=== PATIENT | female | born 2000 | race Hispanic/Latino ===

== ENCOUNTER 2021-03-18 22:54 | Observation (INO) | payer OTHER, MEDICAID ==
[~2021-03-18] VITALS: Ht 149.9 cm; Wt 61.7 kg
[2021-03-18 22:56] VITALS: BP 146/93
[2021-03-18 23:26] LABS: BILIRUBIN,URINE Small (NEGATIVE); COLOR,URINE Dark Yellow (YELLOW); GLUCOSE, URINE (UA) Negative (NEGATIVE); KETONES,URINE Trace mg/dL (NEGATIVE); LEUKOCYTE ESTERASE ,URINE Small (NEGATIVE); NITRATE,URINE Negative (NEGATIVE); OCCULT BLOOD,URINE Negative (NEGATIVE); PROTEIN,URINE POS 1+ mg/dL (NEGATIVE)
[2021-03-18 23:28] LABS: APPEARANCE,URINE HAZY (CLEAR)
[2021-03-18 23:35] LABS: BACTERIA,URINE Few /HPF (None Seen)
[2021-03-20] MEDS ORDERED: PREN1TAB80 PO (20:39)
[2021-03-20] MEDS ORDERED: DIPH25 PO (20:40)
== END 2021-03-19 01:05 | disposition home or self-care (01) ==
LOC: EDH 22:54 → LDH 22:55
PROVIDERS: ADMIT Obstetrics & Gynecology; ATTEND Obstetrics & Gynecology
DX: O62.9 Abnormality of forces of labor, unspecified (principal); O36.8130 Decreased fetal movements, third trimester, not applicable or unspecified; O26.893 Other specified pregnancy related conditions, third trimester; R10.9 Unspecified abdominal pain; K59.00 Constipation, unspecified; Z3A.37 37 weeks gestation of pregnancy; Z90.49 Acquired absence of other specified parts of digestive tract
CPT/HCPCS: 59025; 76819; 81001; G0378 ×2; G0379

== ENCOUNTER 2021-03-20 15:30 | Inpatient (IN) | payer OTHER, MEDICAID ==
[~2021-03-20] VITALS: Ht 149.9 cm; Wt 62.1 kg
[2021-03-20] MEDS ORDERED: PROMETHAZINE HCL 25 MG/ML 1ML AMPULE IM PRN (19:30)
[2021-03-20] MEDS ORDERED: MEPERIDINE-PF 50 MG/ML SYG IVP PRN (19:30)
[2021-03-20] MEDS ORDERED: LACTATED RINGERS 1000ML 1,000 ML IV PRN (19:30)
[2021-03-20 19:57] LABS: APPEARANCE,URINE Clear (CLEAR); BILIRUBIN,URINE Small (NEGATIVE); COLOR,URINE Dark Yellow (YELLOW); GLUCOSE, URINE (UA) Negative (NEGATIVE); KETONES,URINE Negative (NEGATIVE); LEUKOCYTE ESTERASE ,URINE Small (NEGATIVE); NITRATE,URINE Negative (NEGATIVE); OCCULT BLOOD,URINE Negative (NEGATIVE); PH,URINE 6.5 (5.0-8.0); PROTEIN,URINE Trace mg/dL (NEGATIVE)
[2021-03-20 20:05] LABS: BACTERIA,URINE Few /HPF (None Seen); RBC,URINE 0-1 /HPF (0-1); SQUAMOUS EPITHELIAL CELL,UR Few /HPF (0-2)
[2021-03-20] MEDS ORDERED: EPHEDRINE SULFATE 50 MG/ML AMPULE IVP PRN (20:30)
[2021-03-20] MEDS ORDERED: AMPICILLIN 2GM+NS 100ML 100 ML IV SCH (20:30)
[2021-03-20] MEDS ORDERED: LACTATED RINGERS 500 ML 500 ML IV PRN (20:30)
[2021-03-20] MEDS ORDERED: NALOXONE HCL 0.4 MG/1 ML ML IV PRN (20:30)
[2021-03-20 20:38] LABS: HEMATOCRIT 34.6 % (36-48); MEAN CORPUSCULAR HEMOGLOBIN 30.4 pg (27.0-33.0); MEAN CORPUSCULAR HGB CONC 33.2 g/dL (32.0-36.0); MEAN CORPUSCULAR VOLUME 91.5 fL (80-100); RED BLOOD CELL COUNT(AUTO) 3.78 MIL/uL (4.00-5.50); RED CELL DISTRIBUTION WIDTH 12.6 % (11.0-15.5); WHITE BLOOD COUNT (AUTO) 9.3 K/uL (4.8-10.8)
[2021-03-20] MEDS ORDERED: PREN1TAB80 PO ×2 (20:39)
[2021-03-20] MEDS ORDERED: DIPH25 PO ×2 (20:40)
[2021-03-20 20:54] LABS: AMPHET/METH SCREEN,URINE NEGATIVE (NEGATIVE); BARBITURATE SCREEN, URINE NEGATIVE (NEGATIVE); BENZODIAZEPINES SCREEN,URINE NEGATIVE (NEGATIVE); CANNABINOID SCREEN,URINE NEGATIVE (NEGATIVE); COCAINE SCREEN,URINE NEGATIVE (NEGATIVE); OPIATE SCREEN,URINE NEGATIVE (NEGATIVE); PHENCYCLIDINE SCREEN,URINE NEGATIVE (NEGATIVE)
[2021-03-20] MEDS ORDERED: MAGNESIUM 4GM PREMIX 100ML 100 ML IV ONE (23:15)
[2021-03-20] MEDS ORDERED: CALCIUM GLUC 1GM/10ML VIAL IV PRN (23:30)
[2021-03-20] MEDS ORDERED: LACTATED RINGERS 1000ML 1,000 ML IV SCH (23:30)
[2021-03-20] MEDS ORDERED: MAGNESIUM 4GM PREMIX 100ML 100 ML IV PRN (23:30)
[2021-03-20] MEDS ORDERED: MAGNESIUM SULFATE 40GM/1000ML 1,000 ML IV ONE (23:36)
[2021-03-20] MEDS ORDERED: MAGNESIUM SULFATE 40GM/1000ML 1,000 ML IV PRN (23:45)
[2021-03-20 23:47] LABS: CREATININE 0.6 mg/dL (0.5-1.5); POTASSIUM 3.3 mmol/L (3.5-5.1)
[2021-03-20 23:48] LABS: INR 0.84 (0.85-1.15); PROTHROMBIN TIME 9.3 SEC (9.6-11.6)
[2021-03-20 23:50] LABS: PARTIAL THROMBOPLASTIN TIME 25.6 SEC (26.3-35.5)
[2021-03-20 23:51] LABS: ALBUMIN 2.2 g/dL (3.5-5.0); BILIRUBIN,TOTAL 0.8 mg/dL (0.2-1.0); TOTAL PROTEIN, SERUM 6.6 g/dL (6.0-8.3); URIC ACID 4.2 mg/dL (2.6-7.2)
[2021-03-21] MEDS: AMPICILLIN 1GM+NS 50ML 50 ML IV SCH ×3 (00:19→09:01)
[2021-03-21] MEDS ORDERED: OXYTOCIN-LR 20 UNITS/1000 ML 1,000 ML IV SCH (05:00)
[2021-03-21] MEDS ORDERED: ACETAMINOPHEN 500 MG TABLET PO PRN (09:00)
[2021-03-21] MEDS ORDERED: ACETAMINOPHEN 500 MG TABLET ONE (09:04)
[2021-03-21] MEDS ORDERED: LIDOCAINE HCL 1% 20 ML VIAL ONE (13:41)
[2021-03-21] MEDS ORDERED: MISOPROSTOL 200 MCG TABLET ONE (15:12)
[2021-03-21] MEDS ORDERED: MAGNESIUM 4GM PREMIX 100ML 100 ML IV PRN (15:30)
[2021-03-21] MEDS ORDERED: CALCIUM GLUC 1GM/10ML VIAL IV PRN (15:30)
[2021-03-21] MEDS: LACTATED RINGERS 1000ML 1,000 ML IV SCH (15:30)
[2021-03-21] MEDS ORDERED: MAGNESIUM SULFATE 40GM/1000ML 1,000 ML IV PRN (15:30)
[2021-03-21] MEDS ORDERED: OXYTOCIN 10 USP UNITS/ML IV PRN (15:30)
[2021-03-21] MEDS: OXYTOCIN-LR 20 UNITS/1000 ML 1,000 ML IV SCH (16:09)
[2021-03-21] MEDS ORDERED: LANOLIN 30GM OINTMENT TP PRN (21:30)
[2021-03-21] MEDS ORDERED: BENZOCAINE/LANOLIN/ALOE VERA 60 ML AEROSOL TP PRN (21:30)
[2021-03-21] MEDS ORDERED: WITCH HAZEL 1 PAD TP PRN (21:30)
[2021-03-21] MEDS ORDERED: ACETAMINOPHEN WITH CODEINE 1 TAB TAB PO PRN (21:30)
[2021-03-21] MEDS ORDERED: ACETAMINOPHEN 325 MG TAB PO PRN (21:30)
[2021-03-21 23:04] VITALS: BP 132/84
[2021-03-21] MEDS: IBUPROFEN 600 MG TABLET PO PRN (23:11)
[2021-03-22] MEDS: OXYTOCIN-LR 20 UNITS/1000 ML 1,000 ML IV SCH (02:05)
[2021-03-22 03:49] VITALS: BP 130/79
[2021-03-22] MEDS: LACTATED RINGERS 1000ML 1,000 ML IV SCH ×2 (04:50→18:10)
[2021-03-22 06:32] LABS: HEMATOCRIT 27.1 % (36-48); MEAN CORPUSCULAR HEMOGLOBIN 30.7 pg (27.0-33.0); MEAN CORPUSCULAR HGB CONC 33.9 g/dL (32.0-36.0); MEAN CORPUSCULAR VOLUME 90.3 fL (80-100); RED CELL DISTRIBUTION WIDTH 12.7 % (11.0-15.5); WHITE BLOOD COUNT (AUTO) 11.9 K/uL (4.8-10.8)
[2021-03-22 08:30] VITALS: BP 120/77
[2021-03-22 08:43] VITALS: BP 120/77
[2021-03-22] MEDS: DOCUSATE SODIUM 100 MG CAP PO SCH ×2 (09:05→20:34)
[2021-03-22 12:30] VITALS: BP 137/84
[2021-03-22 13:09] LABS: HEPATITIS Bs ANTIGEN SCREEN P Negative (Negative)
[2021-03-22] MEDS ORDERED: DIPH,PERTUSS(ACELL),TET VAC/PF 0.5 ML VIAL IM ONE (15:43)
[2021-03-22] MEDS ORDERED: DIPH,PERTUSS(ACELL),TET VAC/PF 0.5 ML VIAL IM PRN (16:00)
[2021-03-22 16:09] VITALS: BP 126/79
[2021-03-22 20:15] VITALS: BP 134/88
[2021-03-22] MEDS: IBUPROFEN 600 MG TABLET PO PRN (20:34)
[2021-03-23 00:33] VITALS: BP 121/73
[2021-03-23 04:21] VITALS: BP 134/79
[2021-03-23 08:30] VITALS: BP 130/82
== END 2021-03-23 12:35 | disposition home or self-care (01) | DRG 805 ==
LOC: LDH 18:14 → WSH 03-21 21:55
PROVIDERS: ADMIT Obstetrics & Gynecology; ATTEND Obstetrics & Gynecology
PROC: 10E0XZZ Delivery of Products of Conception, External Approach (ICD-10-PCS; principal; 2021-03-20)
PROC: 10907ZC Drainage of Amniotic Fluid, Therapeutic from Products of Conception, Via Natural or Artificial Opening (ICD-10-PCS; 2021-03-20)
PROC: 0KQM0ZZ Repair Perineum Muscle, Open Approach (ICD-10-PCS; 2021-03-20)
PROC: 3E0P7GC Introduction of Other Therapeutic Substance into Female Reproductive, Via Natural or Artificial Opening (ICD-10-PCS; 2021-03-20)
PROC: 3E0234Z Introduction of Serum, Toxoid and Vaccine into Muscle, Percutaneous Approach (ICD-10-PCS; 2021-03-20)
DX: O26.62 Liver and biliary tract disorders in childbirth (principal); K83.1 Obstruction of bile duct; Z37.0 Single live birth; O14.04 Mild to moderate pre-eclampsia, complicating childbirth; O70.1 Second degree perineal laceration during delivery; O99.344 Other mental disorders complicating childbirth; F32.A Depression, unspecified; Z3A.37 37 weeks gestation of pregnancy; Z23 Encounter for immunization
CPT/HCPCS: 36415; 59025; 76819; 80053; 80305; 81001; 83735; 84550; 85027; 85384; 85610; 85730; 86592; 86850; 86900; 86901; 87088; 87340; 90715; A4314; A4351; G0378; G0379; J0290; J2175; J2550; J2590; J3475; J7120